=== PATIENT | female | born 1955 | race Caucasian/White ===

== ENCOUNTER 2019-03-18 22:39 | Emergency (ER) | payer BC, OTHER ==
[~2019-03-18] VITALS: Ht 172.7 cm; Wt 103.2 kg
[2019-03-19 02:14] VITALS: BP 128/70
== END 2019-03-19 03:09 | disposition home or self-care (01) ==
LOC: ED 23:56
DX: R07.89 Other chest pain (principal); Z87.891 Personal history of nicotine dependence
CPT/HCPCS: 36415; 71045; 80053; 83690; 84484; 85025; 93005; 99284